=== PATIENT | female | born 2000 | race Two or more races ===

== ENCOUNTER 2021-02-10 14:34 | Emergency (ER) | payer SELFPAY ==
[~2021-02-10] VITALS: Ht 160 cm; Wt 69.5 kg
[2021-02-10] MEDS ORDERED: ONDANSETRON ODT 4 MG TAB.RAPDIS. PO ONE (15:00)
--- NOTE | 2021-02-10 15:03 | PHYS DOC ---
Past Medical History Past Medical History: No Pertinent History Past Surgical History: No Surgical History Smoking Status: Never Smoker Alcohol Use: None Drug Use: None General Adult EDM: Chief Complaint: SEIZURE HPI: HPI: Patient is a 20 year old female with history of seizures who presents with a seizure. Witnessed by her boyfriend. Was generalized. Lasted approximately 5 minutes and stopped on its own. She had seen a neurologist at [facility] and was previously on Keppra. Reportedly stopped all medications and stopped following up with her neurologist 2 years ago. She had not had a seizure since. She states that her work-up previously had included an MRI and an EEG, although no seizure activity was caught on the EEG. Today she bit her tongue and had urinary incontinence. She denies any pain aside from her tongue and a mild headache. She feels like she is back to her baseline. Denies any recent fever/chills, neck pain, severe headaches. She does endorse having increased urinary frequency. States that she has been stressed about financial situations and has not been sleeping particularly well recently. Denies drugs or alcohol use. She is not currently on any medications. She does have a PCP that she follows with at [facility] Review of Systems: Review of Systems: Constitutional: Denies fever or chills. [] Eyes: Denies change in visual acuity. [] HENT: Reports tongue biting. Denies nasal congestion or sore throat. [] Respiratory: Denies cough or shortness of breath. [] Cardiovascular: Denies chest pain or edema. [] GI: Denies abdominal pain, nausea, vomiting, bloody stools or diarrhea. [] : Denies dysuria. Reports urinary frequency. [] Musculoskeletal: Denies back pain or joint pain. [] Integument: Denies rash. [] Neurologic: Reports seizure. Denies headache, focal weakness or sensory changes. [] Endocrine: Denies polyuria or polydipsia. [] Lymphatic: Denies swollen glands. [] Psychiatric: Denies depression or anxiety. [] Heart Score: C/O Chest Pain: N/A Risk Factors: Risk Factors: DM, Current or recent (<one month) smoker, HTN, HLP, family history of CAD, obesity. Risk Scores: Score 0 - 3: 2.5% MACE over next 6 weeks - Discharge Home Score 4 - 6: 20.3% MACE over next 6 weeks - Admit for Clinical Observation Score 7 - 10: 72.7% MACE over next 6 weeks - Early Invasive Strategies Family History: Family History: No pertinent family history identified Allergies: Allergies: Allergies Coded Allergies Type Severity Reaction Last Updated Verified No Known Drug Allergies 02/10/21 No Physical Exam: PE: Constitutional: Well developed, well nourished, no acute distress, non-toxic appearance. [] HENT: Right lateral tongue abrasion. No active bleeding. [] Eyes: PERRLA, EOMI, conjunctiva normal, no discharge. [] Neck: Normal range of motion, no tenderness, supple, no stridor. [] Cardiovascular:Heart rate regular rhythm, no murmur [] Lungs & Thorax: Bilateral breath sounds clear to auscultation [] Abdomen: Bowel sounds normal, soft, no tenderness, no masses, no pulsatile masses. [] Skin: Warm, dry, no erythema, no rash. [] Back: No tenderness, no CVA tenderness. [] Extremities: No tenderness, no cyanosis, no clubbing, ROM intact, no edema. [] Neurologic: Alert, oriented to person, place, time. Face is symmetric. Speech is normal. Cranial nerves III-XII intact. 5/5 strength in bilateral upper and lower extremities in all dermatomes. No dysmetria with [id number] or [id number] testing. Gait is stable.. [] Psychologic: Affect normal, judgement normal, mood normal. [] Current Patient Data: Labs: Laboratory Tests Test 02/10/21 14:45 POC Urine HCG, Qualitative Hcg negative (Negative) EKG: EKG: [] Radiology/Procedures: Radiology/Procedures: [] Course & Med Decision Making: Course & Med Decision Making Pertinent Labs and Imaging studies reviewed. (See chart for details) Patient is 20-year-old female with history of seizure who presents with a 5- minute self-limited seizure. This is her first seizure in 2 years since she stopped seeing her neurologist and was taken off of Keppra. She has stigmata of seizure with urinary incontinence and lateral tongue biting. Doubt other etiologies such as syncope or cardiac event. She is returned to her neurologic baseline and has no neurologic deficits. Her previous work-up reportedly included MRI and EEG. Do not feel that she requires neuroimaging today. We will check lkhra-ha-ymps glucose and BMP to ensure no electrolyte contribu tion. Although likely stress and poor sleep were the catalyst for a seizure today. She no longer follows with a neurologist. She does have a PCP at [facility]. Given 2 years without a seizure off of Keppra, feel it is reasonable to hold off on antiepileptics and defer choice to outpatient management. She will schedule an appt with her PCP this week. We will continue to monitor her status in the emergency department to ensure no recurrent seizures. Urine negative, not eclamptic seizure. 1500 Dragon Disclaimer: Dragon Disclaimer: This electronic medical record was generated, in whole or in part, using a voice recognition dictation system. Departure Departure Impression: Primary Impression: Seizure Disposition: 01 HOME / SELF CARE / HOMELESS Condition: STABLE Referrals: NON,STAFF (PCP) Please follow-up with your PCP at [facility]. Schedule an appointment within the next 5 days. Additional Instructions: Will be very important that you follow-up with your primary care doctor this week. We will hold off on restarting you on a seizure medication. It is important that you schedule an appointment to discuss whether they would like to start you on Keppra or a different seizure med once again. If you develop recurrent seizures please return to the emergency department. REJI SINGH MD Feb 10, 2021 15:03
[2021-02-10 15:09] LABS: BILIRUBIN,URINE NEGATIVE (NEG); CLARITY,URINE CLEAR; COLOR,URINE YELLOW; NITRITE,URINE NEGATIVE (NEG); PROTEIN,URINE NEGATIVE (NEG-TRACE); UROBILINOGEN,URINE 0.2 mg/dL (0.2 mg/dL)
[2021-02-10 15:16] LABS: BACTERIA,URINE FEW /HPF (0-FEW); HYALINE CASTS, URINE OCCASIONAL /HPF; RBC,URINE RARE /HPF (0-2)
[2021-02-10 15:48] VITALS: BP 103/69
[2021-02-10 15:49] LABS: CALCIUM 9.1 mg/dL (8.5-10.1); CREATININE 0.9 mg/dL (0.6-1.0); POTASSIUM 3.7 mmol/L (3.5-5.1)
== END 2021-02-10 16:24 | disposition home or self-care (01) ==
LOC: ER 14:34
DX: R56.9 Unspecified convulsions (principal); R32 Unspecified urinary incontinence
CPT/HCPCS: 36415; 80048; 81001; 81025; 82962; 99283

== ENCOUNTER 2021-06-28 17:41 | Emergency (ER) | payer OTHER ==
[~2021-06-28] VITALS: Ht 167.6 cm; Wt 63.6 kg
[2021-06-28] MEDS ORDERED: IV NORMAL SALINE 1000ML BAG 1,000 ML IV ONE (18:00)
--- NOTE | 2021-06-28 18:01 | PHYS DOC ---
Past Medical History Past Medical History: No Pertinent History Past Surgical History: No Surgical History Smoking Status: Never Smoker Alcohol Use: Occasionally Drug Use: None General Adult EDM: Chief Complaint: SEIZURE HPI: HPI: Patient is a 21-year-old female who presents to the emergency department for sei zure that lasted approximately 5 minutes this afternoon. Patient reports that she did fall and hit her head. She states that her last seizure was 3 months ago. Patient does have a history of seizures and used to take 500 mg Keppra BID but states that she has not been taking her medications for a year. Her primary care provider is at [facility]. Patient is reporting generalized headache that she rates 9 out of 10. She is also reporting lightheadedness and nausea and vomiting. Patient's vital signs are stable. Review of Systems: Review of Systems: 14 body systems of the review of systems have been reviewed. See HPI for pertinent positive and negative responses, otherwise all other systems are negative, nonpertinent or noncontributory Heart Score: C/O Chest Pain: N/A Risk Factors: Risk Factors: DM, Current or recent (<one month) smoker, HTN, HLP, family history of CAD, obesity. Risk Scores: Score 0 - 3: 2.5% MACE over next 6 weeks - Discharge Home Score 4 - 6: 20.3% MACE over next 6 weeks - Admit for Clinical Observation Score 7 - 10: 72.7% MACE over next 6 weeks - Early Invasive Strategies Current Medications: Current Medications Medications (Trade) Dose Ordered Sig/Santo Start Time Stop Time Status Last Admin Dose Admin Sodium Chloride 1,000 ml @ 1,000 mls/hr 1X ONCE 06/28/21 18:00 06/28/21 18:59 Allergies: Allergies: Allergies Coded Allergies Type Severity Reaction Last Updated Verified No Known Drug Allergies 02/10/21 No Physical Exam: PE: Constitutional: Well developed, well nourished, no acute distress, non-toxic appearance. [] HENT: Normocephalic, atraumatic, bilateral external ears normal, oropharynx moist, no oral exudates, nose normal. [] Eyes: PERRL, 4 mm pupils bilaterally, EOMI, conjunctiva normal, no discharge. [] Neck: Normal range of motion, no tenderness, supple, no stridor. [] Cardiovascular:Heart rate regular rhythm, no murmur [] Lungs & Thorax: Bilateral breath sounds clear to auscultation [] Abdomen: Bowel sounds normal, soft, no tenderness, no masses, no pulsatile masses. [] Skin: Warm, dry, no erythema, no rash. [] Back: Normal range of motion Extremities: No tenderness, no cyanosis, no clubbing, ROM intact, no edema. 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 . [] Psychologic: Affect normal, judgement normal, mood normal. [] Current Patient Data: Labs: Laboratory Tests Test 06/28/21 17:50 06/28/21 18:13 06/28/21 18:15 06/28/21 18:17 White Blood Count 10.5 x10^3/uL Red Blood Count 4.48 x10^6/uL Hemoglobin 14.6 g/dL Hematocrit 41.9 % Mean Corpuscular Volume 94 fL Mean Corpuscular Hemoglobin 33 pg Mean Corpuscular Hemoglobin Concent 35 g/dL Red Cell Distribution Width 13.7 % Platelet Count 379 x10^3/uL Neutrophils (%) (Auto) 74 % Lymphocytes (%) (Auto) 21 % Monocytes (%) (Auto) 4 % Eosinophils (%) (Auto) 1 % Basophils (%) (Auto) 1 % Neutrophils # (Auto) 7.8 x10^3/uL Lymphocytes # (Auto) 2.2 x10^3/uL Monocytes # (Auto) 0.4 x10^3/uL Eosinophils # (Auto) 0.1 x10^3/uL Basophils # (Auto) 0.1 x10^3/uL Urine Collection Type Unknown Urine Color Yellow Urine Clarity Clear Urine pH 5.5 Urine Specific [place] 1.025 Urine Protein 100 mg/dL Urine Glucose (UA) Negative mg/dL Urine Ketones (Stick) 15 mg/dL Urine Blood Negative Urine Nitrite Negative Urine Bilirubin Negative Urine Urobilinogen Dipstick 0.2 mg/dL Urine Leukocyte Esterase Negative Urine RBC 1-2 /HPF Urine WBC 1-4 /HPF Urine Squamous Epithelial Cells Mod /LPF Urine Bacteria Few /HPF Urine Mucus Slight /LPF Urine Opiates Screen Neg Urine Methadone Screen Neg Urine Barbiturates Neg Urine Phencyclidine Screen Neg Urine Amphetamine/Methamphetamine Neg Urine Benzodiazepines Screen Pos Urine Cocaine Screen Neg Urine Cannabinoids Screen Pos Urine Ethyl Alcohol Neg Sodium Level 142 mmol/L Potassium Level 3.1 mmol/L Chloride Level 101 mmol/L Carbon Dioxide Level 24 mmol/L Anion Gap 17 Blood Urea Nitrogen 11 mg/dL Creatinine 0.9 mg/dL Estimated GFR (Cockcroft-Gault) 78.3 BUN/Creatinine Ratio 12 Glucose Level 158 mg/dL Calcium Level 9.1 mg/dL Total Bilirubin 0.3 mg/dL Aspartate Amino Transf (AST/SGOT) 23 U/L Alanine Aminotransferase (ALT/SGPT) 35 U/L Alkaline Phosphatase 92 U/L Total Protein 8.7 g/dL Albumin 4.5 g/dL Albumin/Globulin Ratio 1.1 Bedside Urine HCG, Qualitative Hcg negative Current Medications Medications (Trade) Dose Ordered Sig/Santo Route PRN Reason Start Time Stop Time Status Last Admin Dose Admin Sodium Chloride 1,000 ml @ 1,000 mls/hr 1X ONCE IV 06/28/21 18:00 06/28/21 18:59 DC 06/28/21 18:30 Levetiracetam (Keppra) 1,000 mg 1X PO 06/28/21 19:15 UNV Laboratory Tests Test 06/28/21 17:50 06/28/21 18:13 06/28/21 18:15 06/28/21 18:17 White Blood Count 10.5 x10^3/uL Red Blood Count 4.48 x10^6/uL Hemoglobin 14.6 g/dL Hematocrit 41.9 % Mean Corpuscular Volume 94 fL Mean Corpuscular Hemoglobin 33 pg Mean Corpuscular Hemoglobin Concent 35 g/dL Red Cell Distribution Width 13.7 % Platelet Count 379 x10^3/uL Neutrophils (%) (Auto) 74 % Lymphocytes (%) (Auto) 21 % Monocytes (%) (Auto) 4 % Eosinophils (%) (Auto) 1 % Basophils (%) (Auto) 1 % Neutrophils # (Auto) 7.8 x10^3/uL Lymphocytes # (Auto) 2.2 x10^3/uL Monocytes # (Auto) 0.4 x10^3/uL Eosinophils # (Auto) 0.1 x10^3/uL Basophils # (Auto) 0.1 x10^3/uL Urine Collection Type Unknown Urine Color Yellow Urine Clarity Clear Urine pH 5.5 Urine Specific [place] 1.025 Urine Protein 100 mg/dL Urine Glucose (UA) Negative mg/dL Urine Ketones (Stick) 15 mg/dL Urine Blood Negative Urine Nitrite Negative Urine Bilirubin Negative Urine Urobilinogen Dipstick 0.2 mg/dL Urine Leukocyte Esterase Negative Urine RBC 1-2 /HPF Urine WBC 1-4 /HPF Urine Squamous Epithelial Cells Mod /LPF Urine Bacteria Few /HPF Urine Mucus Slight /LPF Urine Opiates Screen Neg Urine Methadone Screen Neg Urine Barbiturates Neg Urine Phencyclidine Screen Neg Urine Amphetamine/Methamphetamine Neg Urine Benzodiazepines Screen Pos Urine Cocaine Screen Neg Urine Cannabinoids Screen Pos Urine Ethyl Alcohol Neg Sodium Level 142 mmol/L Potassium Level 3.1 mmol/L Chloride Level 101 mmol/L Carbon Dioxide Level 24 mmol/L Anion Gap 17 Blood Urea Nitrogen 11 mg/dL Creatinine 0.9 mg/dL Estimated GFR (Cockcroft-Gault) 78.3 BUN/Creatinine Ratio 12 Glucose Level 158 mg/dL Calcium Level 9.1 mg/dL Total Bilirubin 0.3 mg/dL Aspartate Amino Transf (AST/SGOT) 23 U/L Alanine Aminotransferase (ALT/SGPT) 35 U/L Alkaline Phosphatase 92 U/L Total Protein 8.7 g/dL Albumin 4.5 g/dL Albumin/Globulin Ratio 1.1 Bedside Urine HCG, Qualitative Hcg negative Current Medications Medications (Trade) Dose Ordered Sig/Santo Route PRN Reason Start Time Stop Time Status Last Admin Dose Admin Sodium Chloride 1,000 ml @ 1,000 mls/hr 1X ONCE IV 06/28/21 18:00 06/28/21 18:59 06/28/21 18:30 EKG: EKG: EKG performed by ER staff at 1752 shows sinus rhythm with a rate of 92, QTc of 415, no STEMI read by Dr. Galloway at 1756 [] Radiology/Procedures: Radiology/Procedures: []PROCEDURE: CT HEAD AND CERVICAL SPINE WO Exam: CT head and cervical spine INDICATION: Fall, seizure TECHNIQUE: Sequential axial images through the head and cervical spine were obtained without the administration of IV contrast. Exposure: One or more of the following in the visualized dose reduction techniques were utilized for this examination: 1. Automated exposure control 2. Adjustment of the MA and/or KV according to patient size 3. Use of iterative of reconstructive technique Comparisons: None FINDINGS: Head: No focal parenchymal lesion or hemorrhage is identified. There is no midline shift or sulcal effacement. No acute vascular territory infarction is identified. [place]-white distinction is preserved. The ventricular system is within normal limits without compression hydrocephalus. The basal cisterns are well maintained. The visualized portions of the paranasal sinuses and mastoid air cells are well- pneumatized. No acute fractures. Cervical spine: Vertebral body heights and alignment are well-maintained. Fracture to the cervical spine is not identified. No significant spondylotic change in cervical spine. Visualized paraspinal soft tissues are unremarkable. IMPRESSION: 1. No acute intracranial abnormality. 2. Negative CT C-spine for acute traumatic injury. Electronically signed by: Roberto Ayala MD (06/28/2021 6:51 PM) [facility] DICTATED and SIGNED BY: ROBERTO AYALA MD DATE: 06/28/21 [id number] 0 Course & Med Decision Making: Course & Med Decision Making Pertinent Labs and Imaging studies reviewed. (See chart for details) [] Patient seen in the emergency department today for a seizure that lasted approximately 5 minutes at home. Patient has a history of seizures and takes 500 mg of Keppra BID but has not taken it for a year because it was too strong. Patient's primary care provider is at [facility]. She reports that prior to today, her last seizure was 3 months ago. Patient also states that she misses Xanax and last used approximately 7 to 10 days ago and she is unsure of that is what caused her seizure. Patient CBC is unremarkable, patient was noted to have hypokalemia and this was replaced in the emergency department. Patient CT head and neck shows no acute findings. Patient's UDS was positive for benzos and marijuana. Patient was given Keppra in the emergency department. Patient will be discharged home with Keppra prescription, she was given referral information for neurologist and a primary care provider. Patient's vital signs are stable she is in no acute distress and has not had a seizure while in the emergency department, normal emanuel ro exam. I discussed with patient all findings and diagnostic testing as well as the need to follow-up with PCP for further evaluation and treatment or return to the ER if any new or worsening symptoms. Strict return precautions were also discussed at length. Patient voiced understanding and agreement with the plan. Patient is hemodynamically stable at the time of disposition. Dragon Disclaimer: Dragon Disclaimer: This electronic medical record was generated, in whole or in part, using a voice recognition dictation system. Departure Departure Impression: Primary Impression: Seizure Disposition: HOME / SELF CARE / HOMELESS Condition: GOOD Referrals: NO PCP (PCP) CLAUDIA PENNINGTON MD Patient Instructions: Seizure, Adult Additional Instructions: You were seen in the emergency department today for a seizure. Your blood work was reassuring. Your potassium level was mildly low in the emergency department and this was replaced with supplementation. Please make sure that you are eating potassium rich foods at home like green leafy vegetables and bananas. Please discontinue any drug use. The CT scan of your head and neck showed no acute findings. Follow-up with one of the primary care providers attached to this discharge paperwork or one of the neurologist that you were provided. You are being discharged home with Keppra, please take this as directed. I would advise you to follow-up with 1 of these doctors as soon as possible and ideally tomorrow if you can try to get in. Avoid driving, swimming alone with seizure history. Please return to the emergency department if you have another seizure, chest pain, shortness of breath, intractable nausea or vomiting, severe di zziness or any new or worsening concerns. Scripts Levetiracetam (KEPPRA) 500 Mg Tablet 1 TAB PO BID for 30 Days, #60 TAB 0 Refills Prov: GEREMIAS ORTIZ APRN 06/28/21 GEREMIAS ORTIZ APRN Jun 28, 2021 18:01
[2021-06-28 18:06] LABS: BASO # 0.1 x10^3/uL (0.0-0.2); BASO % 1 % (0-3); EOS # 0.1 x10^3/uL (0.0-0.7); EOS % 1 % (0-3); HEMATOCRIT 41.9 % (36.0-47.0); HEMOGLOBIN 14.6 g/dL (12.0-15.5); LYMPH # 2.2 x10^3/uL (1.0-4.8); LYMPH % 21 % (24-48); MEAN CORPUSCULAR HEMOGLOBIN 33 pg (25-35); MEAN CORPUSCULAR HGB CONC 35 g/dL (31-37); MEAN CORPUSCULAR VOLUME 94 fL (79-100); MONO # 0.4 x10^3/uL (0.0-1.1); MONO % 4 % (0-9); NEUT # 7.8 x10^3/uL (1.8-7.7); NEUT % 74 % (31-73); PLATELET COUNT 379 x10^3/uL (140-400); RED BLOOD COUNT 4.48 x10^6/uL (3.50-5.40); RED CELL DISTRIBUTION WIDTH 13.7 % (11.5-14.5); WHITE BLOOD COUNT 10.5 x10^3/uL (4.0-11.0)
--- NOTE | 2021-06-28 18:13 | EKG ---
[facility] [address] [place] [address] Test Date: 2021-06-28 Test Time: 17:52:02 Pat Name: CARYN COELLO Department: Room: Gender: F Relief Charge Nurse: : 2000 Requested By: GEREMIAS ORTIZ Order Number: [id number] Reading MD: Korey Rodriguez Measurements Intervals Topaz Rate: 92 P: 62 DC: 164 QRS: 33 QRSD: 76 T: 24 QT: 332 QTc: 415 Interpretive Statements SINUS RHYTHM LEFT ATRIAL ABNORMALITY ABNORMAL ECG RI6.02 No previous ECG available for comparison Electronically Signed On 07-01-2021 12:07:37 [employer] by Korey Rodriguez
[2021-06-28 18:23] LABS: BILIRUBIN,URINE NEGATIVE (NEG); CLARITY,URINE CLEAR; COLOR,URINE YELLOW; NITRITE,URINE NEGATIVE (NEG); PH,URINE 5.5 (<5.0-8.0); PROTEIN,URINE 100 mg/dL (NEG-TRACE); UROBILINOGEN,URINE 0.2 mg/dL (0.2 mg/dL)
[2021-06-28 18:29] LABS: AMPHETAMINE/METHAMPHETAMINE NEG (NEG); BARBITURATES NEG (NEG); BENZODIAZEPINES POS (NEG); CANNABINOIDS POS (NEG); COCAINE NEG (NEG); METHADONE NEG (NEG); OPIATES NEG (NEG); PHENCYCLIDINE NEG (NEG)
[2021-06-28 18:34] LABS: BACTERIA,URINE FEW /HPF (0-FEW)
[2021-06-28 18:44] LABS: CALCIUM 9.1 mg/dL (8.5-10.1); CREATININE 0.9 mg/dL (0.6-1.0); GFR 78.3; POTASSIUM 3.1 mmol/L (3.5-5.1)
[2021-06-28 18:49] LABS: ALBUMIN 4.5 g/dL (3.4-5.0); ALBUMIN/GLOBULIN RATIO 1.1 (1.0-1.7); TOTAL BILIRUBIN 0.3 mg/dL (0.2-1.0); TOTAL PROTEIN 8.7 g/dL (6.4-8.2)
--- NOTE | 2021-06-28 18:54 | RAD ---
Exam: CT head and cervical spine INDICATION: Fall, seizure TECHNIQUE: Sequential axial images through the head and cervical spine were obtained without the admi nistration of IV contrast. Exposure: One or more of the following in the visualized dose reduction techniques were utilized for this examination: 1. Automated exposure control 2. Adjustment of the MA and/or KV according to patient size 3. Use of iterative of reconstructive technique Comparisons: None FINDINGS: Head: No focal parenchymal lesion or hemorrhage is identified. There is no midline shift or sulcal effaceme nt. No acute vascular territory infarction is identified. [place]-white distinction is preserved. The ventricular system is within normal limits without compression hydrocephalus. The basal cisterns are well maintained. The visualized portions of the paranasal sinuses and mastoid air cells are well-pneumatized. No acute fractures. Cervical spine: Vertebral body heights and alignment are well-maintained. Fracture to the cervical spine is not identified. No significant spondylotic change in cervical spine. Visualized paraspinal soft tissues are unremarkable. IMPRESSION: 1. No acute intracranial abnormality. 2. Negative CT C-spine for acute traumatic injury. Electronically signed by: Roberto Hernadez MD (06/28/2021 6:51 PM) [facility]
[2021-06-28] MEDS ORDERED: LEVE500T56 PO (19:09)
[2021-06-28] MEDS ORDERED: levETIRAcetam 500 MG TABLET PO SCH (19:15)
[2021-06-28] MEDS ORDERED: POTASSIUM CHLORIDE 20 MEQ TABLET.ER. PO ONE (19:15)
[2021-06-28] MEDS ORDERED: KETOROLAC 30 MG/ML VIAL. IVP ONE (19:30)
[2021-06-28 19:59] VITALS: BP 115/71
== END 2021-06-28 20:10 | disposition home or self-care (01) ==
LOC: ER 17:41
DX: R56.9 Unspecified convulsions (principal); R51.9 Headache, unspecified; G89.11 Acute pain due to trauma; W18.09XA Striking against other object with subsequent fall, initial encounter; Y93.89 Activity, other specified; Y92.89 Other specified places as the place of occurrence of the external cause; Y99.8 Other external cause status
CPT/HCPCS: 36415; 70450; 72125; 80053; 80307; 81001; 81025; 83605; 85025; 93005; 96361; 96374; 99285; J1885; J7030